=== PATIENT | male | born 1985 | race Caucasian/White ===

== ENCOUNTER 2017-12-10 06:48 | Day surgery (SDC) | payer BC, OTHER ==
[2017-12-04 11:40] VITALS: BMI 26.6
[2017-12-10 07:18] VITALS: TEMP 98
[2017-12-10] MEDS ORDERED: LACTATED RINGERS 1,000 ML IV ONE (07:32)
[2017-12-10] MEDS ORDERED: LIDOCAINE 1% 20 ML VIAL (10MG/ML) FOR IV START INTRADERMA ONE (07:33)
--- NOTE | 2017-12-10 08:39 | P.PCN ---
Date of Procedure: 12/10/17 Surgeon: Stanford Hamilton Pathology: none sent Condition: stable Disposition: PACU Description of Procedure: PREOPERATIVE DIAGNOSIS: chronic knee pain due to OA; genicular neuralgia POSTOPERATIVE DIAGNOSIS: same PROCEDURE DESCRIPTION: Patient presents for right knee genicular nerve radiofrequency ablation under fluoroscopy. The procedure is performed using fluoroscopic guidance during needle placement to assure proper position and maximize safety. No use of blood thinners. ANESTHESIA: Local with 1% lidocaine; conscious sedation EBL: Minimal PROCEDURE INDICATION: Patient with persistent knee pain due to genicular neuralgia and knee osteoarthritis, here for right genicular RFA after previous procedure that gave him > 12 months' relief. Pt does not take any blood thinning medications. PROCEDURE DESCRIPTION: The patient was seen and identified in the preoperative area. Risks, benefits, complications, and alternatives were discussed with the patient (including but not limited to incomplete pain relief, bleeding, infection, nerve damage, and allergies to medications), the patient agreed to proceed with the procedure and signed the consent after all questions were answered. Patient was taken to the OR and time out was completed to verify proper patient, position, laterality of pain, and allergies. Pt was placed in the supine position and a pillow was placed under the right knee to induce flexion. The right knee was prepped and draped in the usual sterile fashion. Using AP fluoroscopic guidance, the right knee was identified as were the areas of the superior medial epicondyle of the right femur, superior lateral epicondyle of the right femur, and distal medial epicondyle of the right tibia. Using lidocaine 1% for skin and subcutaneous tissue infiltrations, these three areas were accessed using 18-gauge 100 mm RF cannulas with 10 mm active tips. The RF cannula tips were placed directly on the periosteum at all three locations. Lateral view fluoroscopy demonstrated that the cannulas were approximately chcf through the leg from an AP standpoint and the tips of the needles were at roughly the chcf point of the bone on both the femur and the tibia. After negative aspiration for heme and in the absence of paresthesias, 0.5 ml of PF 1% lidocaine was injected at each needle. Motor testing was performed and was negative for any symptoms radiating further down the legs or up the thigh. Each area then went radiofrequency at 80 degrees Celsius for 90 seconds without any additional paresthesias or problems. After ablation was completed and after negative aspiration, 1 ml of the 3 ml mixture of 2 ml 0.5% PF bupivacaine and 40 mg Kenalog was injected at each site. [place] were withdrawn intact. At the end of the procedure, the skin was cleansed and bandages were applied. COMPLICATIONS: None. DISPOSITION/PLAN: The patient taken to the recovery area after the procedure in a stable condition for observation. Patient was reexamined prior to discharge and there were no issues. Patient was discharged home, accompanied by an adult, after meeting discharged criteria. Discharge instructions were give to the patient by the staff. Patient was specifically instructed not to drive today and to rest for the rest of the day. Patient got > 12 months' relief from this procedure; he will follow up as needed.
[2017-12-10] MEDS ORDERED: IV FLUID CONTINUATION 1,000 ML IV ONE (08:46)
[2017-12-10 08:52] VITALS: RESP 16
[2017-12-10 09:05] VITALS: BP 136/90; PULSE 77
--- NOTE | 2017-12-10 12:57 | FL ---
Fluoroscopy HISTORY: Pain 8 seconds fluoroscopy time supplied to the referring clinician. 3 intraoperative C-arm images docume nt the procedure. See dictated report from anesthesia.
== END 2017-12-10 09:17 | disposition home or self-care (01) ==
LOC: ORPAIN 06:48
PROVIDERS: ATTEND Anesthesiology
DX: G89.29 Other chronic pain (principal); M17.9 Osteoarthritis of knee, unspecified; G58.8 Other specified mononeuropathies; F90.9 Attention-deficit hyperactivity disorder, unspecified type; K21.9 Gastro-esophageal reflux disease without esophagitis
CPT/HCPCS: 64640; J2250; J3301; J3010; 99152

== ENCOUNTER → 2018-09-08 | Outpatient (CLI) | payer BC, OTHER ==
--- NOTE | 2018-09-08 21:23 | MR ---
EXAMINATION TYPE: MR knee RT wo con DATE OF EXAM: 09/08/2018 COMPARISON: Outside right knee x-ray August 10, 2018 HISTORY: Rt knee pain, hx of injury TECHNIQUE: Multiplanar, multisequence images of the knee is performed without IV contrast. FINDINGS: MEDIAL MENISCUS: Anterior horn is intact without tear. Posterior horn is truncated with oblique incre ased signal sagittal image 9. LATERAL MENISCUS: Anterior and posterior horns are intact without tear. CRUCIATE LIGAMENTS: The surgically repaired anterior and clark's point posterior cruciate ligaments are inta ct and unremarkable. Artifact from ACL surgery noted. COLLATERAL LIGAMENTS: The medial collateral ligament and lateral collateral ligament complex are inta ct and unremarkable. EXTENSOR MECHANISM: Visualized quadriceps and patellar tendons are intact. EFFUSION: No significant suprapatellar joint effusion. POPLITEAL CYST: No popliteal/goel cyst. TRICOMPARTMENT SPACES: Mild narrowing medial tibiofemoral compartment with minimal intracondylar spur ring. CARTILAGE: Tricompartmental compartment articular cartilage is maintained. No significant chondromala claire patella is present. BONE MARROW SIGNAL: No focal abnormal marrow signal is appreciated. OTHER: No additional significant abnormality is appreciated. IMPRESSION: 1. Intact ACL after surgical repair. Findings posterior horn of medial meniscus favored product of pr ior surgery, recurrent tear cannot be excluded. Correlate with past surgical history is advised.
== END | disposition home or self-care (01) ==
LOC: RADMRIMAIN 19:32
PROVIDERS: ATTEND Orthopaedic Surgery
DX: M25.561 Pain in right knee (principal); Z98.890 Other specified postprocedural states

== ENCOUNTER 2018-10-27 09:54 | Day surgery (SDC) | payer BC, OTHER ==
[2018-10-23 10:08] VITALS: BMI 26.6
--- NOTE | 2018-10-26 09:43 | HP ---
HISTORY AND PHYSICAL CHIEF COMPLAINT: Right knee pain. HISTORY OF PRESENT ILLNESS: The patient is a 32-year-old male who presents with progressive right knee pain over the past 6 months. It has progressed recently. He notes anterior pain in addition to frequent popping and giving way. He has been taking ibuprofen with only partial temporary relief. He had a previous arthroscopy in 2009. PAST MEDICAL HISTORY: Negative. PAST SURGICAL HISTORY: Significant for right knee arthroscopy in addition to ACL repair. CURRENT MEDICATIONS: 1. Ibuprofen. 2. Omeprazole. 3. Antihypertensive. FAMILY HISTORY: Significant for cancer. SOCIAL HISTORY: Significant for 1/2 pack per day tobacco use. REVIEW OF SYSTEMS: Sixteen-point review of systems otherwise reviewed and is noncontributory. PHYSICAL EXAMINATION: On examination, the patient is approximately 5 feet 6 inches, 160 pounds of mesomorphic habitus. HEENT exam is nonfocal. Neck is supple. He has painless passive motion of right hip. Straight leg raise is negative. Active motion right knee -4 to 135 degrees of flexion. He is tender about the medial joint line. He has trace effusion. Collaterals are stable, Silvia's negative, Thaddeus's elicits medial pain. His distal neurovascular exam appears intact in the right lower extremity. MRI report from 09/08/2018 shows increased signal involving the posterior portion of the medial meniscus along with the previous ACL reconstruction, which appears intact. IMPRESSION: Right knee symptomatic medial meniscal tear. RECOMMENDATION: I talked to patient at length regarding his condition and treatment options. At this point, he is quite symptomatic and opts to proceed with surgery. We will plan to proceed with arthroscopic evaluation with probable partial medial meniscectomy. Risks and benefits were discussed at length in layman's terms. We will likely perform that as an outpatient procedure. MMODL / IJN: [id number] /
[~2018-10-27 09:54] MED LIST: DEXAMETHASONE SOD PHOSPHATE 10 MG/ML 1 ML VIAL IV ONE; LACTATED RINGERS 1,000 ML IV SCH; LIDOCAINE 1% 20 ML VIAL (10MG/ML) FOR IV START INTRADERMA PRN; MIDAZOLAM (PF) 2 MG/2 ML VIAL IV PRN; ONDANSETRON 4 MG/2 ML VIAL IVP ONE; SCOPOLAMINE 1.5MG/72HR PATCH TRANSDERM ONE; ceFAZolin IN SWFI 2 GM/20 ML SYRINGE IVP ONE
[2018-10-27] MEDS ORDERED: MIDAZOLAM 2 MG/2 ML VIAL ONE (11:54)
[2018-10-27] MEDS ORDERED: LIDOCAINE 1% INJ 10MG/ML (20 ML MDV) ONE (11:54)
[2018-10-27] MEDS ORDERED: PROPOFOL 10 MG/ML 20 ML VIAL IV ONE (11:54)
[2018-10-27] MEDS ORDERED: HYDROmorphone (PF) 1 MG/ML ONE (11:54)
[2018-10-27] MEDS ORDERED: fentaNYL (PF) 50 MCG/ML 2 ML AMP ONE (11:54)
[2018-10-27] MEDS ORDERED: SUCCINYLCHOLINE CHLORIDE 100 MG/5 ML SYR IV ONE (11:54)
--- NOTE | 2018-10-27 12:32 | P.OP ---
Date of Procedure: 10/27/18 Preoperative Diagnosis: Right knee internal derangement Postoperative Diagnosis: Right knee posterior medial meniscal tear/symptomatic patellofemoral plica Procedure(s) Performed: Right knee arthroscopic partial medial meniscectomy/plica resection Anesthesia: LEONIDAS Surgeon: Gil Loyola Estimated Blood Loss (ml): 10 Pathology: none sent Condition: stable Disposition: PACU Indications for Procedure: The patient's a 32-year-old male who presents with persistent/progressive right knee pain and mechanical symptoms over the past 6 months. She has a history of a reconstruction 2. A discussion of the risks and benefits of operative intervention versus continued conservative measures was made with patient. He opted to proceed with surgery. Operative risks to include infection, neurovascular injury, development of blood clots, possible incomplete resolution of symptoms, possible worsening symptoms and need for subsequent procedures was discussed. Informed consent was obtained. Operative Findings: As below Description of Procedure: The patient was brought to the operating room, and after induction of general anesthesia examined the right knee. Collaterals were stable, Silvia was negative, and posterior drawer was negative. The right lower extremity was prepped and draped in a normal fashion. A superior lateral portal was made through a 3 mm skin incision superior and lateral to the patella. This was used for outflow. A lateral portal was made through a 5 mm vertical skin incision lateral to the patella tendon above the joint line. Diagnostic arthroscopy was performed. On inspection of the medial compartment there was a longitudinal tear involving the posterior aspect of the medial meniscus. Prior almost complete medial meniscectomy was noted. This was debrided back to stable base with straight baskets and a motorized shaver. On inspection of the notch, the anterior cruciate ligament graft appeared to be intact. On inspection of the lateral compartment no significant meniscal or articular cartilage pathology was noted.. On inspection of the patellofemoral articulation there was minimal degenerative changes. A large medial patellofemoral plica was noted appeared to impinge on the medial femoral condyle throughout the arc of motion. This was debrided back with a motorized shaver. The gutters were clear debris. The knee was then thoroughly irrigated. The portals were closed with Steri-Strips. A sterile dressing was applied in addition to a compression stocking. The patient was awoken from general anesthesia and transferred to recovery room in good condition. Blood loss was estimated at 10 mL. No complications were incurred.
[2018-10-27 12:36] VITALS: TEMP 97.6
[2018-10-27] MEDS ORDERED: KETOROLAC 30 MG/ML 1 ML VIAL IVP ONE (12:37)
[2018-10-27] MEDS: HYDROmorphone 0.5 MG/0.5 ML SYRINGE IVP PRN ×2 (12:39→12:49)
[2018-10-27 13:07] VITALS: RESP 16
[2018-10-27] MEDS ORDERED: HYDROcodone/APAP 5-325MG 1 EACH TAB PO ONE (13:44)
[2018-10-27 14:02] VITALS: BP 120/74; PULSE 88
== END 2018-10-27 14:15 | disposition home or self-care (01) ==
LOC: OR 09:54
PROVIDERS: ATTEND Orthopaedic Surgery
DX: M23.321 Other meniscus derangements, posterior horn of medial meniscus, right knee (principal); M67.51 Plica syndrome, right knee; F17.210 Nicotine dependence, cigarettes, uncomplicated; I10 Essential (primary) hypertension; E78.5 Hyperlipidemia, unspecified; K21.9 Gastro-esophageal reflux disease without esophagitis; Z79.899 Other long term (current) drug therapy
CPT/HCPCS: 29881; J2250; J1100; J2405; J2001; J3010; J1885; J1170 ×2; J0330; J2704; J0690